=== PATIENT | male | born 1995 | race Caucasian/White ===

== ENCOUNTER 2017-11-03 09:04 | Emergency (ER) ==
[2017-11-03 09:23] VITALS: BP 112/43; TEMP 97.5; BMI 19.9
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
== END 2017-11-03 09:38 | disposition home or self-care (01) ==
LOC: ED 09:04
DX: S30.860A Insect bite (nonvenomous) of lower back and pelvis, initial encounter (principal); R21 Rash and other nonspecific skin eruption; W57.XXXA Bitten or stung by nonvenomous insect and other nonvenomous arthropods, initial encounter; F17.210 Nicotine dependence, cigarettes, uncomplicated
CPT/HCPCS: 99282

== ENCOUNTER 2018-01-07 09:11 | Emergency (ER) | payer OTHER ==
[2018-01-07 09:14] VITALS: BP 120/81; TEMP 97.9; BMI 22.4
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
== END 2018-01-07 10:51 | disposition home or self-care (01) ==
LOC: ED 09:11
DX: S33.5XXA Sprain of ligaments of lumbar spine, initial encounter (principal); V89.2XXA Person injured in unspecified motor-vehicle accident, traffic, initial encounter; F17.210 Nicotine dependence, cigarettes, uncomplicated
CPT/HCPCS: 99283